=== PATIENT | male | born 1960 | race Caucasian/White ===

== ENCOUNTER 2016-12-21 21:40 | Emergency (ER) | payer OTHER ==
[2016-12-21 21:56] VITALS: RESP 16; TEMP 98.2
--- NOTE | 2016-12-21 22:10 | EDPHY ---
H & P Time Seen by Provider: 12/21/16 22:00 HPI/ROS: CHIEF COMPLAINT: Left shoulder pain HISTORY OF PRESENT ILLNESS: 56-year-old male complaining of acute left shoulder pain after he was playing hockey tournament this morning [place], fell onto his left shoulder and felt immediate pain. Pain is reproducible with range of motion. He lives in [place]. Positive new crepitus. No paresthesia or sensory deficit. PRIMARY CARE PROVIDER:Dr. Jeovany Gary REVIEW OF SYSTEMS: A ten point review of systems was performed and is negative with the exception of the items mentioned in the HPI PHYSICAL EXAM (Prior to examination, patient consented to physical exam, hands were washed and my usual and customary physical exam procedures followed) 1) GENERAL: Well-developed, well-nourished, alert and oriented. Appears to be in no acute distress. 2) HEAD: Normocephalic 3) HEENT: Pupils equal, round, reactive to light bilaterally. 4) LUNGS: Breathing comfortably. 5) MUSCULOSKELETAL: Tender to palpation anterior shoulder, reproducible pain at same location with range of motion. No deficit. No step-off. Soft compartments. Normal coloration. 6) SKIN: intact 7) VASCULAR: pulses and cap refill present are brisk 8) NEUROLOGIC: Radial, ulnar, median nerve function intact with no deficits appreciated on exam DIFFERENTIAL DIAGNOSIS: in no particular order including but not limited to fracture, sprain, compartment syndrome Xray of the left shoulder interpreted by myself: no definitive acute osseous abnormality Procedure: Splint An upper extremity sling was applied by ER technical support technician. After application of the splint I returned and re-examined the patient. The splint was adequately immobilizing the joint and distal to the splint the patient's circulation and sensation were intact. Patient shows no signs of compartment syndrome. Was given orthopedic precautions. Smoking Status: Never smoked Constitutional: Initial Vital Signs Temperature (C) 36.8 C 12/21/16 21:53 Heart Rate 66 12/21/16 21:53 Respiratory Rate 16 12/21/16 21:53 Blood Pressure 115/68 12/21/16 21:53 O2 Sat (%) 93 12/21/16 21:53 O2 Delivery Mode Room Air Allergies/Adverse Reactions: No Known Allergies Allergy (Unverified 12/21/16 21:56) Home Medications: Medication Instructions Recorded Aspirin 12/21/16 MDM/[facility]arture - [facility] Course/Re-evaluation: Re-evaluation with serial exams. The limitations of x-ray in evaluation of acute shoulder injury were discussed with the patient. Do not think that emergent MRI currently indicated however I did recommend follow up with Orthopedics as he may necessitate outpatient MRI. Given the name of [facility] orthopedics Dr. Bryson Acevedo for follow-up. Usual and customary orthopedic precautions instructions provided. He feels comfortable being discharged. - Depart Disposition: Home, Routine, Self-Care Clinical Impression: Sprain of left shoulder Qualifiers: Encounter type: initial encounter Shoulder sprain type: unspecified sprain Qualified Code(s): S43.402A - Unspecified sprain of left shoulder joint, initial encounter Condition: Good Instructions: Shoulder Sprain (ED) Additional Instructions: Return to the ER immediately if you experience discoloration, have worsening pain, numbness, tingling, or any other symptoms that concern you. If you received x-rays in the emergency department today, be advised, that ligamentous , tendon, muscular, and other non-bony injury cannot be fully ruled out. Try to keep your affected extremity elevated above the level of your chest, and keep cold packs on the affected area, for the next 48 hours. Referrals: Bryson Acevedo MD [Medical Doctor] - 2-3 days, call for appt.
[2016-12-21 22:41] VITALS: BP 118/65; PULSE 67; O2SAT 95
== END 2016-12-21 22:44 | disposition home or self-care (01) ==
DX: S43.402A Unspecified sprain of left shoulder joint, initial encounter (principal); Z79.82 Long term (current) use of aspirin; W18.39XA Other fall on same level, initial encounter; Y92.89 Other specified places as the place of occurrence of the external cause; Y93.65 Activity, lacrosse and field hockey
CPT/HCPCS: A4565

== ENCOUNTER 2017-12-09 22:44 | Emergency (ER) | payer OTHER ==
[2017-12-09 22:55] VITALS: RESP 16; TEMP 98.4; O2SAT 93
--- NOTE | 2017-12-09 23:35 | EDPHY ---
H & P Time Seen by Provider: 12/09/17 22:54 HPI/ROS: Chief complaint: Subjective fever with dry slight cough and body aches HPI: This is a 57-year-old male who is in good health. He did not get the influenza vaccine this past season. We have past the peak for influenza however continues to [place] This particular season the influenza vaccine was not particularly affective as it was the case down in [place] over our summer. He felt well yesterday and in fact felt well this morning. It was not little about 3 or 4 this afternoon that he noted a general feeling of unwell, sense of mild cough, and body and joint aches. He had no known exposure. He substitute took a nap and woke up and felt continued to feel the same and was worried that he might have contracted influenza. Part of that particular concern has to do with the fact that he he is to travel tomorrow for business and is worried about exposing others. There has been no shaking chills or rigors. The cough is dry and slight. He has had no antecedent UR sinus pressure. There has been no sore throat ROS: Constitutional - he did have a sense of getting chilled and had a Fleece jacket on earlier and was not warm this is since improved. Eyes - no discharge, or injection ENT - no earache, change in hearing, difficulty swallowing, sore throat. Respiratory - No Shortness of breath, phlegm, wheezing or pleuritic chest pain. The cough is dry Musculoskeletal - see above. Integument - no rashes. Neurological - no headache, numbness, tingling, or paresthesias. No focal motor weakness. Immunological - no swelling or lymphadenopathy 10 point ROS otherwise negative Smoking Status: Never smoked Physical Exam: Gen: Well developed, well nourished. Nontoxic. Febrile, as he feels warm to the touch and on my exam his temperature is 37.7 orally HEENT: Normocephalic. Ears: TMs are clear. Hearing normal. Eyes: PERRL. No conjunctival injection or pallor. no jaundice. Nose: No nasal discharge. Throat: Membranes are moist. Oropharynx is without erythema or exudate. Normal phonation. Neck: Trachea is in the ML. No laryngeal tenderness. No adenopathy Lungs: Good air entry into both lungs. Faint question of rales at the left base. There are no wheezes or air hunger. No respiratory distress. Skin: Good color, without pallor. There is no diaphoresis. Skin is warm and dry , without diaphoresis. Intact without rashes Constitutional: Initial Vital Signs Temperature (C) 36.9 C 12/09/17 22:51 Heart Rate 71 12/09/17 22:51 Respiratory Rate 16 12/09/17 22:51 Blood Pressure 111/79 12/09/17 22:51 O2 Sat (%) 93 12/09/17 22:51 O2 Delivery Mode Room Air Allergies/Adverse Reactions: No Known Allergies Allergy (Unverified 12/21/16 21:56) Home Medications: Medication Instructions Recorded Aspirin 12/21/16 Metoprolol Tartrate 25 mg PO 12/09/17 Medical Decision Making ED Course/Re-evaluation: At the time I met and examined the man, we discussed therapeutic and diagnostic options. He feels that he highly likely does not have pneumonia and thus would like to have influenza testing to verify that. Further, we did discuss him cancelling his travel plans with respect to his work that is scheduled for tomorrow so as not to spread the illness. The influenza test was negative. Discussed the potential for this being pneumonia due to the abrupt onset of illness with fever and cough. However he would not want to go on any treatment nor would he want a chest x-ray at this point in time. He states he will be coming back if not improved. He is aware of some potential for worsening of the condition with acceleration of symptoms and problematic potential for being profoundly worse if it is not diagnosed early. Warned. Differential Diagnosis: Diagnostic considerations include, but are not limited to, the following: URI, sinusitis, pharyngitis, otitis media, pneumonia, allergy, influenza, strep throat. Departure - Departure Disposition: Home, Routine, Self-Care Clinical Impression: Influenza-like illness Condition: Good Instructions: Upper Respiratory Infection (ED) Additional Instructions: No [id number] medications will shorten the course of this illness however , for symptomatic relief consider the following: Tylenol and Advil works well together the combination: Tylenol 1000 mg and 600 mg every 8 hours. For the cough: Delsym for tsp twice daily as needed to suppress the cough Or Mucinex Referrals: Patient,NotPresent [Primary Care Provider] - As per Instructions Stand Alone Forms: Work Excuse
[2017-12-10 00:08] VITALS: BP 104/67; PULSE 67
== END 2017-12-10 00:05 | disposition home or self-care (01) ==
LOC: CED 22:44
DX: J11.1 Influenza due to unidentified influenza virus with other respiratory manifestations (principal); Z79.82 Long term (current) use of aspirin
CPT/HCPCS: 87400-PO

== ENCOUNTER 2018-06-09 07:04 | Observation (INO) | payer OTHER ==
[2018-06-09] MEDS ORDERED: NS 1,000 ML IV ONE (07:07)
[2018-06-09 07:58] LABS: PLATELET COUNT 146 10^3/uL (150-400)
[2018-06-09 08:05] LABS: INR 0.96 (0.83-1.16)
--- NOTE | 2018-06-09 08:22 | PDANEPAE ---
ANE Past Medical History - Pulmonary History Hx Oxygen in Use at Home: No Hx Sleep Apnea: No - Endocrine History Hx Diabetes: No ANE Review of Systems Review of Systems: ANE Patient History - Allergies Allergies/Adverse Reactions: No Known Allergies Allergy (Verified 06/02/18 15:33) - Home Medications Home Medications: Aspirin EC [Aspirin EC 81 mg (*)] 81 mg PO DAILY 12/21/16 [Last Taken 06/07/18 08:00] Metoprolol Tartrate 25 mg PO BID PRN 12/09/17 [Last Taken 05/12/18 08:00] FOLIC ACID 0.8 mg PO DAILY 06/02/18 [Last Taken 06/07/18 08:00] Glucosa Singleton 2Kcl/Chondroitin Singleton [Glucosamine Chondroitin Caplet] 1 each PO DAILY 06/02/18 [Last Taken 06/07/18 08:00] Herbals/Supplements -Info Only 1 ea PO DAILY 06/02/18 [Last Taken 06/07/18 08:00 ] [place]-3 Fatty Acids [Fish Oil 1000 mg (*)] 2,000 mg PO DAILY 06/02/18 [Last Taken 06/07/18 08:00] - Smoking Hx Smoking Status: Never smoked ANE Labs/Vital Signs - Labs Result Diagrams: 06/09/18 07:45 06/09/18 07:45 - Vital Signs Height: 177.8 cm Weight: 91.4 kg ANE Physical Exam - Airway Neck exam: FROM Mallampati Score: Class 2 Mouth exam: normal dental/mouth exam - Pulmonary Pulmonary: no respiratory distress - Cardiovascular Cardiovascular: regular rate and rhythym - ASA Status ASA Status: II ANE Anesthesia Plan Anesthesia Plan: general endotracheal anesthesia, GA w LMA
[2018-06-09] MEDS ORDERED: HEPARIN 10,000 UNIT/10 ML MDV (1,000 UNIT/ML) ONE (08:29)
[2018-06-09] MEDS ORDERED: LIDOCAINE 1% 300 MG/30 ML SDV ONE (08:29)
[2018-06-09] MEDS ORDERED: BUPIVACAINE 0.75% 10 ML SDV ONE (08:29)
[2018-06-09] MEDS ORDERED: fentaNYL 100 MCG/2 ML INJ ONE (08:35)
[2018-06-09] MEDS ORDERED: MIDAZOLAM 2 MG/2 ML VIAL ONE (08:36)
[2018-06-09] MEDS ORDERED: PROPOFOL/EMULSION 500 MG/50 ML BOTTLE IV ONE ×2 (08:36→09:44)
--- NOTE | 2018-06-09 08:36 | PDGENHP ---
History & Physical Chief Complaint: symptomatic afl Relevant Physical Exam: s1s2. cta ao3 Cardiorespiratory Assessment: AFL ablation
[2018-06-09] MEDS ORDERED: ROCURONIUM 50 MG/5 ML VIAL ONE (08:45)
[2018-06-09] MEDS ORDERED: PHENYLEPHRINE 10 MG/ML SDV ONE (08:45)
[2018-06-09] MEDS ORDERED: ISOPROTERENOL HCL/D5W 0.2 MG/50 ML BAG IV ONE (10:18)
[2018-06-09] MEDS ORDERED: ePHEDrine SULFATE 25 MG/5 ML SYR ONE ×2 (10:31)
[2018-06-09] MEDS ORDERED: SUGAMMADEX SODIUM 200 MG/2 ML VIAL IVP ONE (10:51)
--- NOTE | 2018-06-09 11:04 | EPPROC ---
Electrophysiology Procedure Note: ELECTROPHYSIOLOGIC STUDY AND CATHETER MEDIATED ABLATION FOR SUBEUSTACHIAN ISTHMUS DEPENDENT COUNTERCLOCKWISE ATRIAL FLUTTER: INDICATION: Recurrent atrial flutter PROCEDURES PERFORMED: 62026-43 EP evaluation with RA/RV/LA pace/record, with arrhythmia induction 03418-82 EP evaluation with RA/RV pace record, insert/reposition catheter, with arrhythmia induction 55908 SVT ablation 29373 3D mapping Fluoroscopy Catheters & Anesthesia: The patient arrived in the Electrophysiology Laboratory in the fasting state. The right clavicular region, right groin, and left groin area were prepped and draped in the usual sterile manner. Anesthesiologist Dr. Aaron Whelan administered general anesthesia. Appropriate non-invasive blood pressure, pulse oximetry and end-tidal CO2 monitoring was established. All catheters were placed percutaneously using the modified Seldinger technique , and advanced into position under fluoroscopic guidance. One #7 Malagasy deflectable octapolar electrode catheter was advanced to the His-bundle position via the left femoral vein One # 7 Malagasy Halo catheter was inserted through the right femoral vein and was placed at the tricuspid annulus. Heparin was administered to keep ACT > 200 seconds. Programmed stimulation was performed from the right atrium, coronary sinus ( left atrium) and right ventricle. Parahisian pacing demonstrated all retrograde conduction over the AV node. On arrival to the Electrophysiology Laboratory the patient was in sinus rhythm. Typical atrial flutter has been documented previously. In preparation for ablation of typical atrial flutter, a high-resolution 3D (3 dimensional) Carto electroanatomical map of the sub-Eustachian isthmus and right atrium was obtained during pacing of the posterolateral coronary sinus. For ablation of typical atrial flutter, one Mobi sheath was placed in the right atrium. A #8 Malagasy deflectable quadrapolar electrode catheter (2mm-5mm-2mm spacing) with 3.5 mm irrigated tip electrode and location sensor for the GearBox mapping system was inserted in the long sheath and advanced to the right atrium. Radiofrequency applications were applied between the tricuspid annulus at 0630 oclock as seen in the DARREN view and the inferior vena cava. This achieved conduction block across the isthmus. Following ablation of the atrial flutter, programmed atrial stimulation was performed in the baseline state and during infusion of isoproterenol 2 mcg/min. No atrial arrhythmias were inducible post ablation. Post ablation, a high-resolution electroanatomical map of the sub-Eustachian isthmus was obtained during pacing of the posterolateral coronary sinus. This confirmed conduction block across the sub-Eustachian isthmus. Bidirectional block was also confirmed by pacing. The catheters were removed. Sheaths were removed in the EP lab after applying subcutaneous purse string suture. The patient was transferred to the cardiovascular holding area in stable condition. There were no apparent complications. Antegrade WBB 560 ms, no antegrade slow pathway CONCLUSIONS: 1. Atrial flutter. 2. Successful catheter mediated ablation of cavotricuspid isthmus achieving bi -directional conduction block across cavotricuspid isthmus. 3. No atrial arrhythmias inducible post ablation. 4. No apparent complications. Patient Problems: Problems Problem Status Onset Atrial fibrillation and flutter Acute
[2018-06-10 04:27] LABS: PLATELET COUNT 139 10^3/uL (150-400)
--- NOTE | 2018-06-10 08:39 | CPEKG ---
Test Reason : OPEN Blood Pressure : / mmHG Vent. Rate : 061 BPM Atrial Rate : 061 BPM P-R Int : 200 ms QRS Dur : 098 ms QT Int : 424 ms P-R-T Axes : 055 034 018 degrees QTc Int : 427 ms Sinus rhythm Ventricular premature complex Probable left atrial enlargement Inferior infarct, old Confirmed by Bobo Dean ([id number]) on 06/10/2018 8:38:53 AM Referred By: Confirmed By:Bobo Dean
--- NOTE | 2018-06-10 08:40 | CPEKG ---
Test Reason : OPEN Blood Pressure : / mmHG Vent. Rate : 074 BPM Atrial Rate : 074 BPM P-R Int : 191 ms QRS Dur : 098 ms QT Int : 401 ms P-R-T Axes : 056 047 010 degrees QTc Int : 445 ms Sinus rhythm Left atrial enlargement Confirmed by Bobo Dean ([id number]) on 06/10/2018 8:39:54 AM Referred By: Confirmed By:Bobo Dean
[2018-06-10] MEDS ORDERED: ASPIRIN EC 81 MG TAB PO SCH (09:00)
[2018-06-10 12:36] VITALS: BP 112/76
--- NOTE | 2018-06-10 14:25 | ECHO ---
[email or web address] [address] Main: [phone] Fax: [email or web address] Echocardiogram Name: GINNA COELHO MR#: [id number] Study Date: 06/10/2018 Study Time: 07:56 AM Date of : 1960 Age: 58 year(s) Height: 177.8 cm (70 in.) Weight: 91.17 kg (201 lb.) BSA: 2.09 m2 Gender: Male Examination: Echo Indication: F/U Post EP Study Image Quality: Adequate Contrast: Requested by: Jw Reynolds BP: / Heart Rate: Rhythm: Indication: F/U Post EP Study Procedure Staff Stylist Apprentice: Rachell Cardona RDCS Reading Physician: Sincere Tamayo MD Requesting Provider: Conclusions: Normal size left ventricle. Normal global systolic LV function. The ejection fraction is estimated to be 55-60 %. Mildly dilated right ventricle. The left atrium is mildly dilated. The right atrium is mildly dilated. Patient states history of biscuspid aortic valve. There is a moderate amount of calcification present. Unable to rule out bicuspid aortic valve vs fused leaflets. There is moderate aortic regurgitation present. Mild tricuspid regurgitation is present. Right ventricular systolic pressure measures 23mmHg. Measurements: Chambers Valvular Assessment AV/MV Valvular Assessment TV/PV Normal Normal Normal Name Value Range Name Value Range Name Value Range Ao Carol (2D): 3.0 cm (1.4 cm-2.6 AV Vmax: 2.60 m/s (1 m/s-1.7 TR Vmax: 2.12 mm/s ( - ) cm) m/s) TR PGmax: 18 mmHg ( - ) IVSd (2D): 1.0 cm (0.6 cm-1.1 AV maxP mmHg ( - ) syst. PAP: 23 mmHg ( - ) cm) AV meanP mmHg ( - ) PV Vmax: 1.14 m/s (0.6 m/s-0.9 LVDd (2D): 4.7 cm (4.2 cm-5.9 MV E Vmax: 0.43 m/s ( - ) m/s) cm) MV A Vmax: 0.57 m/s ( - ) PV PGmax: 5 mmHg ( - ) LVDs (2D): 2.5 cm (2.1 cm-4 MV E/A: 0.75 ( - ) cm) MV PHT: 0.095 s ( - ) LVPWd (2D): 0.9 cm (0.6 cm-1 cm) MVA (PHT): 2.3 s ( - ) LVOTd 2.5 cm 2.5 cm mm LVEF (BP): 55 % (>=55 %) EF Range: 55-60 % RVDd(2D): 4.9 cm (1.9 cm-3.8 cmmm) Patient: GINNA COELHO Study Date: 06/10/2018 Page 1 of 2 07:56 AM Continued Measurements: Chambers Valvular Assessment AV/MV Valvular Assessment TV/PV Name Value Name Value Name Value LADs: 4.1 cm MV DecTime: 303 m/s CVP (est.): 5 mmHg LADs Lon.6 cm MV E' Septal: 0.08 m/s LA Area: 20.3 cm2 MV E/E' Septal: 5.70 LA Volume: 57 ml MV E/E' Lateral: 4.60 RA Area: 17.0 cm2 Additional Vessels Name Value Ao Ascendin.1 cm Inferior Vena Cava: 1.6 cm Findings: Left Ventricle: Normal size left ventricle. No LV hypertrophy. Normal global systolic LV function. The ejection fraction is estimated to be 55-60 %. No regional wall motion abnormality. Grade 1 diastolic dysfunction (abnormal relaxation). Right Ventricle: Mildly dilated right ventricle. Normal RV function. Left Atrium: The left atrium is mildly dilated. Right Atrium: The right atrium is mildly dilated. Mitral Valve: The mitral valve is normal in appearance and function. Mild mitral valve regurgitation is present. No mitral stenosis is present. Aortic Valve: Patient states history of biscuspid aortic valve. There is a moderate amount of calcification present. Unable to rule out bicuspid aortic valve vs fused leaflets. There is moderate aortic regurgitation present. Tricuspid Valve: The tricuspid valve is normal in appearance and function. Mild tricuspid regurgitation is present. The pulmonary artery pressure is normal. Right ventricular systolic pressure measures 23mmHg. Pulmonic Valve: The pulmonic valve is normal in appearance and function. Trivial pulmonic valve regurgitation. Aorta: The aorta is normal. IVC: The IVC is normal sized. Pericardium: No pericardial effusion. No pleural effusion. (No Signature Object) Patient: GINNA COELHO Study Date: 06/10/2018 Page 2 of 2 07:56 AM [id number]
--- NOTE | 2018-06-10 15:20 | CPEKG ---
Test Reason : OPEN Blood Pressure : / mmHG Vent. Rate : 059 BPM Atrial Rate : 059 BPM P-R Int : 196 ms QRS Dur : 100 ms QT Int : 420 ms P-R-T Axes : 052 019 017 degrees QTc Int : 416 ms Sinus rhythm Probable left atrial enlargement Confirmed by Bobo Dean ([id number]) on 06/10/2018 3:20:09 PM Referred By: Confirmed By:Bobo Dean
--- NOTE | 2018-06-10 15:58 | GDS ---
ADMISSION DIAGNOSES: 1. Atrial fibrillation. 2. Atrial flutter. 3. Planned electrophysiology study with possible ablation. DISCHARGE DIAGNOSES: 1. Electrophysiology study with A flutter ablation. 2. Atrial fibrillation. 3. Atrial flutter. COURSE OF HOSPITALIZATION: This gentleman was seen in clinic by Dr. Jw Reynolds on March 25, 2018. At that time, he was having atrial flutter. He was symptomatic with palpitations and fatigue. He could not identify any triggers. He has continued on metoprolol for rate control. He has a CHADS Vasc score of 0 and is managed on aspirin 81 mg daily for anticoagulation. He has a known bicuspid aortic valve. He otherwise has no other significant medical history. It was determined that due to his symptoms, they would proceed with electrophysiology study to determine appropriate treatment for his atrial fibrillation and atrial flutter. He was taken to the EP lab on 06/09/2018, where Dr. Reynolds was able to isolate and successfully ablate atrial flutter. There were no complications. He then was recovered and went to PCU for overnight observation where he has done well. He has been ambulating in the halls. Groin sites are intact with no bleeding, induration or pain. Sutures were removed with good wound healing noted. His echocardiogram showed no pericardial effusion. At this time, he currently is stable for discharge. DISCHARGE MEDICATIONS: Aspirin 81 mg daily, metoprolol tartrate 25 mg twice daily, herbal supplements 1 daily. Glucosamine chondroitin 1 tab daily. Fish oil 2000 mg daily. Folic acid 0.8 mg daily. PHYSICAL EXAMINATION: VITAL SIGNS: On day of discharge, blood pressure 112/76 , heart rate 62 and regular, oxygen saturation 94%, temperature 36.8. EKG showed regular sinus rhythm with no ischemic changes. PROCEDURES: 06/09/2018, electrophysiology procedure with Dr. Jw Reynolds. INDICATION FOR PROCEDURE: Recurrent atrial flutter. He was able to isolate and successfully perform atrial flutter ablation with no complications. CONCLUSION: 1. Atrial flutter. 2. Successful catheter mediation ablation of cavotricuspid isthmus achieving bidirectional conduction block across [place] tricuspid isthmus. 3. No atrial arrhythmias inducible post ablation. 4. No complications. Echocardiogram 06/10/2018. Findings: 1. No left ventricular hypertrophy. 2. Ejection fraction 55%-60%. No regional wall motion abnormality. Mitral valve. 1. There is mild mitral regurgitation. 2. No mitral stenosis was present. Aortic valve: 1. Bicuspid aortic valve. 2. Moderate calcification present. 3. Moderate aortic regurgitation. 4. There was no pericardial effusion. No pleural effusion. DISCHARGE PLAN: He will be discharged home on his home medications with no changes. Groin precautions for 7 days. These were reviewed with him verbally and written instructions were provided. He is reminded to do no heavy lifting, pushing, pulling greater than 10 pounds for 7 days. No sitting in a tub of water for 7 days. Okay to shower. Should groin site bleed, hold firm pressure and go to the nearest ER. Keep bowels soft to avoid bearing down. He is reminded to do low-level exercise the 1st week and no aggressive exercise for 2 weeks. Follow up with Dr. Reynolds in 3-4 weeks. The office will call with his followup appointment. For any questions or concerns, he is asked to call Dr. Reynolds's nurse at [facility]. At this time he currently is stable for discharge. /[id number]/MODL MTDD
--- NOTE | 2018-06-16 14:22 | GPROG ---
POST-ANESTHESIA NOTE The patient was taken to the recovery room in stable condition without apparent anesthetic complicati ons. /[id number]/MODL
== END 2018-06-10 13:14 | disposition home or self-care (01) ==
LOC: FCATH 07:04 → F2W 11:05
PROVIDERS: ADMIT Internal Medicine Cardiovascular Disease; ATTEND Internal Medicine Cardiovascular Disease
PROC: 02K83ZZ Map Conduction Mechanism, Percutaneous Approach (ICD-10-PCS; principal; 2018-06-09)
PROC: B246ZZ4 Ultrasonography of Right and Left Heart, Transesophageal (ICD-10-PCS; principal; 2018-06-09)
PROC: 4A023FZ Measurement of Cardiac Rhythm, Percutaneous Approach (ICD-10-PCS; principal; 2018-06-09)
PROC: 3E053KZ Introduction of Other Diagnostic Substance into Peripheral Artery, Percutaneous Approach (ICD-10-PCS; principal; 2018-06-09)
PROC: 02583ZZ Destruction of Conduction Mechanism, Percutaneous Approach (ICD-10-PCS; principal; 2018-06-09)
DX: I48.92 Unspecified atrial flutter (principal); I48.91 Unspecified atrial fibrillation
CPT/HCPCS: 93005; 93312; 93613; 93621; 93623; 93653; G0378; C1731; C1732; C1766; J1644; J2250; J2370; J2704; J3010

== ENCOUNTER → 2018-12-16 | Outpatient (CLI) | payer OTHER ==
[~2018-12-16] MED LIST: IOPAMIDOL (ISOVUE-370) 150 ML BTL IV ONE
== END ==
LOC: FIMAGING 09:33
PROVIDERS: ATTEND Internal Medicine Cardiovascular Disease
DX: Z01.810 Encounter for preprocedural cardiovascular examination (principal); I48.91 Unspecified atrial fibrillation
CPT/HCPCS: Q9967

== ENCOUNTER 2018-12-21 10:50 | Observation (INO) | payer OTHER ==
[2018-12-21] MEDS ORDERED: NS 1,000 ML IV ONE (10:53)
--- NOTE | 2018-12-21 11:15 | PDGENHP ---
History & Physical Chief Complaint: Paroxysmal atrial fibrillation History of Present Illness: Symptomatic atrial fibrillation. History of successful atrial flutter ablation, bicuspid aortic valve, and CAD by Ca score. Relevant Physical Exam: General: A&Ox4, no apparent distress. Respiratory: CTA. Cardiac: Regular rate and rhythm, S1, S2. Extremities: Pulses 2+ bilaterally, no edema Cardiorespiratory Assessment: Proceed with BI and CB PVI as planned for today. Resume Eliquis 6hrs post-procedure
[2018-12-21 11:43] LABS: PLATELET COUNT 167 10^3/uL (150-400)
[2018-12-21 12:01] LABS: PROTIME(PATIENT) 12.8 SEC (12.0-15.0)
[2018-12-21] MEDS ORDERED: IOPAMIDOL (ISOVUE-300) 100 ML BTL ONE (12:45)
[2018-12-21] MEDS ORDERED: HEPARIN 10,000 UNIT/10 ML MDV (1,000 UNIT/ML) ONE ×2 (12:45→14:42)
[2018-12-21] MEDS ORDERED: LIDOCAINE 1% 300 MG/30 ML SDV ONE (12:45)
[2018-12-21] MEDS ORDERED: HEPARIN/DEXTROSE 25,000 UNIT/500 ML BAG ONE (12:45)
[2018-12-21] MEDS ORDERED: BUPIVACAINE 0.75% 10 ML SDV ONE (12:45)
--- NOTE | 2018-12-21 14:11 | PDANEPAE ---
ANE History of Present Illness 58 yo foe afib ablation ANE Past Medical History - Cardiovascular History Hx Hypertension: No Hx Arrhythmias: Yes Hx Chest Pain: No Hx Coronary Artery / Peripheral Vascular Disease: No Hx CHF / Valvular Disease: No Hx Palpitations: No - Pulmonary History Hx Oxygen in Use at Home: No Hx Sleep Apnea: No - Endocrine History Hx Diabetes: No - Chronic Pain History Chronic Pain: No ANE Review of Systems Review of Systems: - Exercise capacity METS (RN): 5 METS ANE Patient History - Allergies Allergies/Adverse Reactions: No Known Allergies Allergy (Verified 06/02/18 15:33) - Home Medications Home Medications: Aspirin EC [Aspirin EC 81 mg (*)] 81 mg PO DAILY 12/21/16 [Last Taken 06/07/18 08:00] Metoprolol Tartrate 25 mg PO BID PRN 12/09/17 [Last Taken 05/12/18 08:00] FOLIC ACID 0.8 mg PO DAILY 06/02/18 [Last Taken 06/07/18 08:00] Glucosa Singleton 2Kcl/Chondroitin Singleton [Glucosamine Chondroitin Caplet] 1 each PO DAILY 06/02/18 [Last Taken 12/10/18] Herbals/Supplements -Info Only 1 ea PO DAILY 06/02/18 [Last Taken 12/17/18] [place]-3 Fatty Acids [Fish Oil 1000 mg (*)] 2,000 mg PO DAILY 06/02/18 [Last Taken 06/07/18 08:00] - Smoking Hx Smoking Status: Never smoked ANE Labs/Vital Signs - Labs Result Diagrams: 12/21/18 11:25 12/21/18 11:25 - Vital Signs Height: 6 ft Weight: 86.183 kg ANE Physical Exam - Airway Neck exam: FROM Mallampati Score: Class 2 Mouth exam: normal dental/mouth exam - Pulmonary Pulmonary: no respiratory distress - Cardiovascular Cardiovascular: regular rate and rhythym - ASA Status ASA Status: II ANE Anesthesia Plan Anesthesia Plan: general endotracheal anesthesia
[2018-12-21] MEDS ORDERED: fentaNYL 100 MCG/2 ML INJ ONE (14:21)
[2018-12-21] MEDS ORDERED: REMIFENTANIL HCL 1 MG VIAL ONE ×2 (14:21→16:30)
[2018-12-21] MEDS ORDERED: PROPOFOL/EMULSION 500 MG/50 ML BOTTLE IV ONE ×2 (14:22→16:30)
[2018-12-21] MEDS ORDERED: ROCURONIUM 50 MG/5 ML VIAL ONE (14:24)
[2018-12-21] MEDS ORDERED: ePHEDrine SULFATE 25 MG/5 ML SYR ONE (14:39)
[2018-12-21] MEDS ORDERED: PROTAMINE SULFATE 50 MG/5 ML VIAL IVP ONE (17:06)
[2018-12-21] MEDS ORDERED: NALOXONE HCL 0.4 MG/ML INJ IVP PRN (17:57)
--- NOTE | 2018-12-21 17:58 | POSTANESTH ---
Post Anesthetic Evaluation Cardiovascular Status: Normal, Stable Respiratory Status: Tx Decrease in SpO2 Level of Consciousness/Mental Status: Can Participate in Eval Pain Control: Adequate, Prn Tx Ordered Nausea/Vomiting Control: Adequate, Prn Tx Ordered Complications Possibly Related to Anesthesia: None Noted
--- NOTE | 2018-12-21 18:24 | EPPROC ---
Electrophysiology Procedure Note: ELECTROPHYSIOLOGIC STUDY AND BALLOON-CATHETER MEDIATED CRYOABLATION FOR PAROXYSMAL ATRIAL FIBRILLATION Procedures performed: 97461-64 EP evaluation with RA/RV/LA pace/record, with arrhythmia induction 96133-66 EP evaluation with RA/RV pace record, insert/reposition catheter, with arrhythmia induction 63741 Atrial fibrillation ablation Intracardiac echocardiogram Transseptal puncture Fluoroscopy INDICATION: Paroxysmal atrial fibrillation PROCEDURE: The patient arrived in the Electrophysiology Laboratory in the fasting state. The right groin, left groin and right infraclavicular area were prepped and draped in the usual sterile fashion. Anesthesiologist administered general anesthesia Dr. Jourdan Davis . All catheters were placed percutaneously using the Seldinger technique and advanced into position under fluoroscopic guidance. One #7 [place] deflectable octapolar electrode catheter was placed in the His-bundle position via the left femoral vein (2mm spacing, IVC electrode for unipolar rec/ordings). / This catheter was placed in the coronary sinus after transseptal puncture and later placed in the SVC-R subclavian vein junction to pace the right phrenic nerve during right pulmonary vein ablation. One #8 [place] AcuNaV ultrasound catheter was placed in the left femoral vein and advanced into the right atrium. One #4 [place] sheath was inserted into the left femoral artery via percutaneous technique and used for continuous arterial blood pressure monitoring and intermittent ACT determination. Programmed stimulation was performed from the right atrium, left atrium (CS) and right ventricle. There was no evidence of AV accessory pathway. Intracardiac echo evaluation of the left atrium and pulmonary veins was performed. Baseline ACT was drawn and heparin bolus was administered and heparin drip was started prior to transseptal puncture. ACT was checked every 15 minutes and maintained in the range of 350-400 seconds. One 14Fr short sheath was placed in the right femoral vein. One 8Fr SL1 sheath was advanced into the right atrium via the 14Fr short sheath. Transseptal puncture was performed under intracardiac ultrasound, fluoroscopic and hemodynamic guidance placing the sheath into the left atrium. [place] RF needle ( C0 curve) was used. The mean left atrial pressure was 18 mmHg. Pulmonary vein angiogram was done using SL1 sheath. CT angiography of pulmonary veins was done previously. There were distinct LSPV, LIPV, RSPV and RIPV. The SL1 sheath was exchanged for a Enthuse Flexcath sheath using an Amplatz stiff guide wire. A 28 mm Cryoballoon catheter with a 20 mm Achieve catheter was placed via the sheath into the left atrium. Intracardiac ultrasound and PV angiograms were used to assist in placing the mapping catheter at the antrum of the pulmonary veins. All pulmonary veins were isolated successfully using cryoballoon ablation using freeze/thaw/freeze cycles at 2-3-minute intervals, with good [id number] of isolation. Coumadin ridge/Ligament of [place] region was ablated. Pre and post pulmonary vein recordings were measured on the spiral Achieve catheter to ensure complete pulmonary vein isolation. During the right-sided ablation, phrenic nerve pacing was performed to assess the phrenic nerve strength ( manually and with ICE visualization of liver movement during phrenic capture) and the phrenic nerve was intact throughout the right-sided ablation and at the end of the procedure. An esophageal temperature probe (12 electrode, Circa) was placed by the anesthesiologist at the beginning of the procedure. Esophageal temperature was monitored continuously and cryoablation was interrupted if esophageal temperature was <15 C. ICE imaging post ablation was consistent with pre ablation imaging with no changes noted, moreover there was no left atrial/left ventricular thrombus and no pericardial effusion. The catheters were withdrawn. Protamine was given. The sheaths were removed and manual pressure was used for hemostasis. The patient was recovered from anesthesia. There were no complications. The patient was arousable and moving all four extremities at the end of the procedure. CONCLUSIONS: 1. Paroxysmal atrial fibrillation. 2. Successful pulmonary vein isolation procedure (left and right pulmonary vein antrum) using cryoballoon ablation. 3. No apparent complications. Patient Problems: Problems Problem Status Onset Atrial fibrillation and flutter Acute
[2018-12-21] MEDS ORDERED: ACETAMINOPHEN 325 MG TAB PO PRN (20:02)
[2018-12-21] MEDS ORDERED: METOPROLOL TARTRATE 25 MG TAB PO PRN (20:34)
[2018-12-21] MEDS ORDERED: HYDROCODONE/APAP 5/325 TAB PO PRN (20:44)
[2018-12-21] MEDS: APIXABAN 5 MG TAB PO SCH (22:57)
[2018-12-22 05:46] LABS: PLATELET COUNT 164 10^3/uL (150-400)
[2018-12-22] MEDS: APIXABAN 5 MG TAB PO SCH (08:02)
[2018-12-22] MEDS ORDERED: PANTOPRAZOLE SODIUM 40 MG TAB PO SCH (09:00)
--- NOTE | 2018-12-22 10:18 | ECHO ---
[email or web address] [address] [address] Main: [phone] Echocardiography Examination Transthoracic Name: GINNA COELHO MR#: [id number] Study Date: 12/22/2018 Study Time: 08:58 AM Date of : 1960 Age: 58 year(s) Height: 182.9 cm (72 in.) Weight: 86.18 kg (190 lb.) BSA: 2.08 m2 Gender: Male Examination: Echo Contrast: Image Quality: Adequate Rhythm: Heart Rate: BP: 114 mmHg/65 mmHg Indication: F/U Post EP Study Procedure Staff Referring Physician: It Service Continuity Supervisor: Rachell Cardona [facility] Reading Physician: Ross Hearn MD Requesting Provider: Ordering Physician: Jw Reynolds MD Indication: F/U Post EP Study Measurements Chambers AV/MV Label Value Normal Value Label Value Normal Value IVSd, 2D 1 cm (0.6cm - 1.1cm) AV PGmean 26 mmHg LVDd, 2D 4.6 cm (4.2cm - 5.9cm) SHAHANA D (continuity eq. 1.1 cm2 LVDs, 2D 3 cm (2.1cm - 4cm) VTI) LVEF, 2D 64 % (54% - 74%) MV A Vmax 0.49 m/s LVEF, BP 62 % (55% - 70%) MV DT 254 ms LVOT PGmean 4 mmHg MV E' lateral 0.07 m/s LVOT Vmean 0.9 m/s MV E' mean 0.06 m/s LVOTd 2 cm (1.9cm - 2.1cm) MV E' septal 0.06 m/s LVPWd, 2D 1 cm (0.6cm - 1cm) MV E Vmax 0.72 m/s LA Volume, BP 66 ml (18ml - 58ml) MV E/A 1.47 LADs, 2D 4.3 cm (3cm - 4cm) MV E/E' lateral 10.1 LAESV index, BP 31.7 ml/m2 MV E/E' mean 11.08 RA Area 21.4 cm2 MV E/E' septal 11.9 (0.5 - 1.7) Additional Vessels MV PHT 0.07 s Label Value Normal Value MV PHT 73 ms AoAsc 3.7 cm MVA PHT 3 cm2 AoRoot, 2D 3.1 cm (1.4cm - 2.6cm) TV/PV IVC 2.2 cm (1.2cm - 2.3cm) Label Value Normal Value RA Pressure 10 mmHg Patient: GINNA COELHO Study Date: 12/22/2018 Page 1 of 3 08:58 AM RVSP 32 mmHg TR Pmax 22 mmHg TR Vmax 2.32 m/s PV PGmax 7 mmHg PV Vmax, Caliper 1.29 m/s (0.6m/s - 0.9m/s) Conclusions Left Ventricle: Normal global systolic left ventricular function. Right Ventricle: Mildly dilated right ventricle. Left Atrium: The left atrium is normal in size. Right Atrium: The right atrium is mildly dilated. Aortic Valve: Moderate aortic regurgitation is present. There is moderate aortic stenosis. Patient states history of bicuspid aortic valve, unable to rule out bicuspid aortic valve vs fused leaflets. Tricuspid Valve: Right Ventricular systolic pressure is measured at 32 mmHg. Pulmonary artery pressure normal. Pericardium: No pericardial effusion. Findings Left Ventricle: Left ventricle is normal in size. Normal global systolic left ventricular function. The ejection fraction, measured by Simpsons method, is 62 %. Left ventricle wall thickness is normal. There are no regional wall motion abnormalities. Grade I Diastolic Dysfunction. Right Ventricle: Mildly dilated right ventricle. Right ventricular systolic function is normal. Left Atrium: The left atrium is normal in size. Right Atrium: The right atrium is mildly dilated. Mitral Valve: Mitral valve appears structurally normal. Mild mitral regurgitation. No mitral valve stenosis. Aortic Valve: Moderate aortic regurgitation is present. There is moderate aortic stenosis. Aortic leaflets exhibit moderate calcification. Patient states history of bicuspid aortic valve, unable to rule out bicuspid aortic valve vs fused leaflets. Tricuspid Valve: Tricuspid valve leaflets are structurally normal. Mild tricuspid regurgitation. No tricuspid valve stenosis. Right Ventricular systolic pressure is measured at 32 mmHg. Pulmonary artery pressure normal. Pulmonic Valve: Pulmonic leaflets are structurally normal. Mild pulmonic valve regurgitation is present. Patient: GINNA COELHO Study Date: 12/22/2018 Page 2 of 3 08:58 AM Aorta: The aortic root size in 2D measures 3.1 cm. The ascending aorta measures 3.7 cm. Aorta Measurements AoRoot, 2D is 3.1 cm. IVC: The inferior vena cava is normal in size. Pericardium: No pericardial effusion. Exam Details Procedure Ordered: Echo Procedure Status: Routine study Image Quality: Adequate Facility Location: Cardiac Echo 1 (No Signature Object) Patient: GINNA COELHO Study Date: 12/22/2018 Page 3 of 3 08:58 AM [id number]
--- NOTE | 2018-12-22 11:24 | ASMTDCNOTE ---
Case Management Discharge Discharge Order Complete? Answers: Yes Patient to Obtain Answers: via Family Medications Transportation Arranged Answers: Family/Friends Discharge Comments Notes: Pt underwent BI and a-fib RF. Pt is being discharged independently and will follow-up in the outpatient as indicated. No CM needs identified. Family to transport. CM discussed plan with RN. Date Signed: 12/22/2018 11:24 AM Electronically Signed By:BRADLEY Jj
--- NOTE | 2018-12-22 11:28 | ASDISCHSUM ---
Discharge Information Plan Status:Home with No Needs Medically Cleared to Leave:12/22/2018 Discharge Date:12/22/2018 CM D/C Disposition:Home, Routine, Self-Care ADT D/C Disposition:Home, Routine, Self-Care Projected Discharge Date:12/22/2018 Transportation at D/C:Family Discharge Delay Reason: Follow-Up Date:12/22/2018 Discharge Slot: Final Diagnosis: Placement Information Patient Contact Information Contact Name:SAMANTHA Relationship:Thang Address: Work Phone: City: [facility] Phone: State/[place] Code: Email: Financial Information Financial Class:HMO and PPO Plans Primary Plan Desc:[facility] Primary Plan Number:[id number] Secondary Plan Desc: Secondary Plan Number: Assessment Information Case Management Discharge Plan Note Case Management Discharge Discharge Order Complete? Answers: Yes Patient to Obtain Answers: via Family Medications Transportation Arranged Answers: Family/Friends Discharge Comments Notes: Pt underwent BI and a-fib RF. Pt is being discharged independently and will follow-up in the outpatient as indicated. No CM needs identified. Family to transport. CM discussed plan with RN. Date Signed: 12/22/2018 11:24 AM Electronically Signed By:BRADLEY Jj LACE LACE Length of stay for Answers: Less than 1 day current admission Acuity / Level of Answers: Yes Care: Did the patient have an inpatient admission? Comorbidities - select Answers: Other Notes: Afib all that apply # of Emergency department Answers: 0 visits in the last 6 months Score: 4 Date Signed: 12/22/2018 11:27 AM Electronically Signed By:BRADLEY Jj Intervention Information
--- NOTE | 2018-12-22 11:36 | GDS ---
[f rep st] DISCHARGE SUMMARY SUPERVISING DESIGN ARCHITECT: Jw Reynolds. ADMISSION DIAGNOSIS: Paroxysmal atrial fibrillation. DISCHARGE DIAGNOSIS: Atrial fibrillation status post cryoballoon pulmonary vein isolation. PROCEDURES PERFORMED DURING HOSPITALIZATION: 1. Electrocardiogram. 2. Echocardiogram. 3. Electrophysiology study. 4. Cryoballoon pulmonary vein isolation. HOSPITAL COURSE: Patient presented 12/21/2018 for atrial fibrillation ablation in the setting of increasingly frequent and symptomatic episodes of paroxysmal atrial fibrillation. The patient underwent successful pulmonary vein isolation using cryoballoon with Dr. Jw Reynolds without any intraprocedure complications. He has done very well in the postprocedure setting, and he is appropriate and stable for discharge home today. CURRENT PHYSICAL EXAMINATION: GENERAL: Alert and oriented x4. No apparent distress. VITAL SIGNS: Blood pressure 97/67, heart rate 72, respiratory rate 17, SpO2 of 94% on room air, temp 36.7 degrees Celsius. RESPIRATORY: Lungs are clear to auscultation without adventitious breath sounds. CARDIAC: Normal S1, S2. No S3, S4. Rhythm is regular. ABDOMEN: Normoactive bowel sounds times all 4 quadrants. No masses or tenderness. Soft to palpation. SKIN: [place], warm, dry without cyanosis, clubbing, or peripheral edema. EXTREMITIES: Bilateral pursestring sutures removed intact without evidence of hematoma, redness, oozing, swelling, or warmth. Pulses are 2+ bilaterally. No edema. LABORATORY STUDIES: Drawn today demonstrate stable CBC and BMP compared to preprocedure. Troponin is 14.8; elevated troponin is to be expected in the postprocedure setting. PROCEDURES: Electrophysiology study and atrial fibrillation ablation as mentioned above. Echocardiogram this morning demonstrates normal left ventricular systolic function, mildly dilated right ventricle, mildly dilated right atrium, moderate aortic regurgitation with moderate aortic stenosis, unable to rule out bicuspid aortic valve versus fused leaflets, and right ventricular systolic pressure measuring 32 mmHg. No evidence of pericardial effusion or new wall motion abnormalities. Electrocardiogram this morning demonstrates normal sinus rhythm with a normal DE and QRS interval, no new ST or T-wave abnormalities. DISCHARGE DISPOSITION: Patient will be discharged home today in stable condition. He is under activity restrictions as below. DISCHARGE MEDICATIONS: Please see discharge medication reconciliation sheet for full details. Please note that patient has been restarted on his Eliquis 6 hours post procedure, and he understands that he may not miss any doses for at least the next 3 months. He will also continue his antacid for GI prophylaxis daily for the next 6 weeks. DISCHARGE INSTRUCTIONS: Post-atrial fibrillation ablation instructions reviewed with patient and his sister in detail. 1. We discussed activity restrictions including lifting no more than 10 pounds and avoidance of submerged bathing for 10 days. 2. He will get up and walk around every 45 minutes for the next 45 days. 3. He will avoid unpressurized air travel or scuba diving for the next 6 months , and he will present to our clinic for an echocardiogram prior to engaging in either of these activities. 4. We also reviewed bleeding precautions, medication compliance, monitoring for signs or symptoms of infection, monitoring for atrioesophageal fistula, and monitoring for sustained arrhythmia. At the time of discharge, patient verbalizes understanding of all discharge instructions without questions or concerns. He has a followup visit scheduled in 1 month, and he will contact [facility] with any new or concerning symptoms prior to his upcoming visit. Time spent on discharge greater than 30 minutes. /[id number]/MODL MTDIvan
[2018-12-22 11:48] VITALS: BP 109/62
--- NOTE | 2018-12-23 09:53 | CPEKG ---
Test Reason : OPEN Blood Pressure : / mmHG Vent. Rate : 066 BPM Atrial Rate : 066 BPM P-R Int : 180 ms QRS Dur : 096 ms QT Int : 392 ms P-R-T Axes : 052 032 026 degrees QTc Int : 411 ms Sinus rhythm Ventricular premature complex Probable left atrial enlargement Inferior infarct, old Confirmed by Geoff Stern ([id number]) on 12/23/2018 9:53:03 AM Referred By: Jw Reynolds Confirmed By:Geoff Stern
--- NOTE | 2018-12-23 09:58 | CPEKG ---
Test Reason : OPEN Blood Pressure : / mmHG Vent. Rate : 073 BPM Atrial Rate : 073 BPM P-R Int : 182 ms QRS Dur : 106 ms QT Int : 419 ms P-R-T Axes : 056 048 -03 degrees QTc Int : 462 ms Sinus rhythm Ventricular premature complex Probable left atrial enlargement Borderline T wave abnormalities Confirmed by Geoff Stern ([id number]) on 12/23/2018 9:58:10 AM Referred By: Jw Reynolds Confirmed By:Geoff Stern
--- NOTE | 2018-12-23 10:42 | CPEKG ---
Test Reason : OPEN Blood Pressure : / mmHG Vent. Rate : 065 BPM Atrial Rate : 065 BPM P-R Int : 183 ms QRS Dur : 097 ms QT Int : 399 ms P-R-T Axes : 053 021 012 degrees QTc Int : 415 ms Sinus rhythm Probable left atrial enlargement Inferior infarct, old Confirmed by Geoff Stern ([id number]) on 12/23/2018 10:41:57 AM Referred By: Jw Reynolds Confirmed By:Geoff Stern
== END 2018-12-22 12:05 | disposition home or self-care (01) ==
LOC: FCATH 10:50 → INTOOBSV 17:32 → F2N 17:32
PROVIDERS: ADMIT Internal Medicine Cardiovascular Disease; ATTEND Internal Medicine Cardiovascular Disease
PROC: 025T3ZZ Destruction of Left Pulmonary Vein, Percutaneous Approach (ICD-10-PCS; principal; 2018-12-21)
PROC: 02K83ZZ Map Conduction Mechanism, Percutaneous Approach (ICD-10-PCS; principal; 2018-12-21)
PROC: B246ZZZ Ultrasonography of Right and Left Heart (ICD-10-PCS; principal; 2018-12-21)
PROC: 025S3ZZ Destruction of Right Pulmonary Vein, Percutaneous Approach (ICD-10-PCS; principal; 2018-12-21)
DX: I48.0 Paroxysmal atrial fibrillation (principal); Z79.01 Long term (current) use of anticoagulants
CPT/HCPCS: 93005; 93306; 93613; 93656; 93662; C1893; G0378; C1730; C1731; C1732; C1733; C1759; C1766; J1644; J2704; J2720; J3010; Q9967